=== PATIENT | female | born 1950 | race Caucasian/White ===

== ENCOUNTER → 2017-09-19 | Outpatient (CLI) | payer OTHER, MEDICARE | LOC: FIMAGING 07:33 | PROVIDERS: ATTEND Physician Assistant | DX: Z12.31 Encounter for screening mammogram for malignant neoplasm of breast (principal) | CPT/HCPCS: G0202 ==

== ENCOUNTER → 2018-10-17 | Outpatient (CLI) | payer OTHER, MEDICARE | LOC: FIMAGING 08:11 | PROVIDERS: ATTEND Physician Assistant | DX: Z12.31 Encounter for screening mammogram for malignant neoplasm of breast (principal); Z80.3 Family history of malignant neoplasm of breast ==

== ENCOUNTER 2019-04-26 08:24 | Emergency (ER) | payer OTHER, MEDICARE | END 2019-04-26 09:48 | disposition home or self-care (01) ==

== ENCOUNTER 2019-04-29 08:19 | Emergency (ER) | payer OTHER, MEDICARE | END 2019-04-29 11:15 | disposition home or self-care (01) ==

== ENCOUNTER 2019-05-03 14:05 | Observation (INO) | payer OTHER, MEDICARE | END 2019-05-04 18:09 | disposition home health service (06) | LOC: FSGY 14:05 → F3E 16:16 ==